=== PATIENT | male | born 1945 | race Caucasian/White ===

== ENCOUNTER 2021-02-08 11:55 | Emergency (ER) | payer OTHER ==
[~2021-02-08] VITALS: Ht 182.9 cm; Wt 115.0 kg
--- NOTE | 2021-02-08 12:27 | RAD ---
XR CHEST 1V History: Reason: SHORTNESS OF BREATH / Spl. Instructions: / History: Comparison: None. Findings: Mild ill-defined right upper and mid and lung opacities. No pleural effusion. No pneumothorax. Normal heart size. Calcified right upper lobe pulmonary nodule, likely prior granulomatous disease. Glenohu meral DJD, left greater than right. Impression: 1. Mild ill-defined opacities, may represent atelectasis or developing infiltrates. If persistent cl inical concern, recommend follow-up. Electronically signed by: Syd Johnson DO (02/08/2021 12:24 PM) [id number]
--- NOTE | 2021-02-08 12:27 | PHYS DOC ---
Past History Past Surgical History: No Surgical History General Adult EDM: Chief Complaint: SHORTNESS OF BREATH HPI: HPI: 75-year-old male presents with shortness of breath and syncopal episode. The patient has been feeling short of breath and generally ill for the last 4 days. His first symptom was shortness of breath. Last night he had body aches and cramps and dizziness. He got up to go to the restroom got dizzy and thinks he lost consciousness. He fell against something and hit the left periorbital area. [facility] and he is still having shortness of breath. Patient was a smoker for 10 years but has no official COPD diagnosis. [facility] but the results are pending. Review of Systems: Review of Systems: Constitutional: Denies fever or chills. Body aches, fatigue Eyes: Denies change in visual acuity HENT: Denies nasal congestion or sore throat Respiratory: shortness of breath Cardiovascular: Denies chest pain or edema GI: Denies abdominal pain, nausea, vomiting, bloody stools or diarrhea : Denies dysuria Musculoskeletal: Denies back pain or joint pain Integument: Denies rash Neurologic: Denies headache, focal weakness or sensory changes Endocrine: Denies polyuria or polydipsia Lymphatic: Denies swollen glands Psychiatric: Denies depression or anxiety Physical Exam: PE: Constitutional: Well developed, well nourished, no acute distress, non-toxic appearance. [] HENT: Normocephalic, bilateral external ears normal, oropharynx moist, no oral exudates, nose normal. [] Eyes: PERRLA, EOMI, conjunctiva normal, no discharge. Dried blood above left eye, ecchymosis below the left eye. [] Neck: Normal range of motion, no tenderness, supple, no stridor. [] Cardiovascular: Heart rate regular rhythm, no murmur [] Lungs & Thorax: Mild end expiratory wheeze right base [] Abdomen: Bowel sounds normal, soft, no tenderness, no masses, no pulsatile masses. [] Skin: Warm, dry, no erythema, no rash. [] Back: No tenderness, no CVA tenderness. [] Extremities: No tenderness, no cyanosis, no clubbing, ROM intact, no edema. [] Neurologic: Alert and oriented X 3, normal motor function, normal sensory function, no focal deficits noted. [] Psychologic: Affect normal, judgement normal, mood normal. [] Current Patient Data: Vital Signs: Vital Signs Date Time Temp Pulse Resp B/P (MAP) Pulse Ox O2 Delivery O2 Flow Rate FiO2 02/08/21 11:58 98.3 88 25 122/77 96 Room Air EKG: EKG: Sinus rhythm, rate 84, normal axis, no ST elevation or depression. [] Radiology/Procedures: Radiology/Procedures: [] Impressions: XR CHEST 1V History: Reason: SHORTNESS OF BREATH / Spl. Instructions: / History: Comparison: None. Findings: Mild ill-defined right upper and mid and lung opacities. No pleural effusion. No pneumothorax. Normal heart size. Calcified right upper lobe pulmonary nodule, likely prior granulomatous disease. Glenohumeral DJD, left greater than right. Impression: 1. Mild ill-defined opacities, may represent atelectasis or developing infiltrates. If persistent clinical concern, recommend follow-up. Electronically signed by: Syd Johnson DO (02/08/2021 12:24 PM) [id number] DICTATED AND SIGNED BY: SYD JOHNSON DO DATE: 02/08/21 1223 CC: PAUL MUÑOZ DO; PCP,NO ~MTH0 0 EXAM: CT head without contrast INDICATION: Fall, syncope COMPARISON: None TECHNIQUE: Axial CT imaging through the head without intravenous contrast. One or more of the following individualized dose reduction techniques were utilized for this examination: 1. Automated exposure control 2. Adjustment of the mA and/or kV according to patient size 3. Use of iterative reconstruction technique. FINDINGS: The ventricles and sulci are within normal limits. Santana-white matter differentiation is maintained. There is no intracranial hemorrhage, acute infarct, or mass lesion. Basal cisterns are clear. The skull. There is intact. There is mild left periorbital soft tissue swelling.. Paranasal sinuses and mastoid air cells are clear. Globes and orbits are intact.. IMPRESSION: 1. No acute intracranial abnormality. 2. Mild left periorbital soft tissue swelling. Electronically signed by: Torie Monroe MD (02/08/2021 12:45 PM) [id number] DICTATED AND SIGNED BY: TORIE MONROE MD DATE: 02/08/21 1243 CC: PAUL MUÑOZ DO; PCP,BELLA ~MTH0 0 Heart Score: C/O Chest Pain: N/A Risk Factors: Risk Factors: DM, Current or recent (<one month) smoker, HTN, HLP, family history of CAD, obesity. Risk Scores: Score 0 - 3: 2.5% MACE over next 6 weeks - Discharge Home Score 4 - 6: 20.3% MACE over next 6 weeks - Admit for Clinical Observation Score 7 - 10: 72.7% MACE over next 6 weeks - Early Invasive Strategies Course & Med Decision Making: Course & Med Decision Making Pertinent Labs and Imaging studies reviewed. (See chart for details) The patient's EKG is negative for acute findings. His labs are significant for a troponin of 0.250. His imaging is negative for acute findings. The patient is not having any chest pain at this time. He has been given 324 of aspirin. I spoke with Dr. Eng and he has accepted the patient but we do not have beds at this facility so he will accept him at [facility]. Patient will go by ambulance. [] Dragon Disclaimer: Dragon Disclaimer: This electronic medical record was generated, in whole or in part, using a voice recognition dictation system. Departure Departure: Impression: Primary Impression: Elevated troponin I level Additional Impression: COVID-19 Disposition: 02 SHORT TERM HOSPITAL Admitting Physician: Randa Eng Condition: STABLE Referrals: PCP,NO (PCP) PAUL MUÑOZ DO Feb 08, 2021 12:27
[2021-02-08 12:43] LABS: BASO % 1 % (0-3); EOS % 0 % (0-3); HEMATOCRIT 48.2 % (39.0-53.0); HEMOGLOBIN 16.7 g/dL (13.0-17.5); LYMPH # 0.8 x10^3/uL (1.0-4.8); LYMPH % 13 % (24-48); MEAN CORPUSCULAR HEMOGLOBIN 31 pg (25-35); MEAN CORPUSCULAR HGB CONC 35 g/dL (31-37); MEAN CORPUSCULAR VOLUME 90 fL (79-100); MONO # 0.5 x10^3/uL (0.0-1.1); MONO % 9 % (0-9); NEUT # 4.5 x10^3uL (1.8-7.7); NEUT % 77 % (31-73); PLATELET COUNT 159 x10^3/uL (140-400); RED BLOOD COUNT 5.37 x10^6/uL (4.30-5.70); RED CELL DISTRIBUTION WIDTH 13.4 % (11.5-14.5); WHITE BLOOD COUNT 5.8 x10^3/uL (4.0-11.0)
--- NOTE | 2021-02-08 12:47 | RAD ---
EXAM: CT head without contrast INDICATION: Fall, syncope COMPARISON: None TECHNIQUE: Axial CT imaging through the head without intravenous contrast. One or more of the following individualized dose reduction techniques were utilized for this examinat ion: 1. Automated exposure control 2. Adjustment of the mA and/or kV according to patient size 3. Use of iterative reconstruction technique. FINDINGS: The ventricles and sulci are within normal limits. Santana-white matter differentiation is maintained. There is no intracranial hemorrhage, acute infarct, or mass lesion. Basal cisterns are clear. The skull. There is intact. There is mild left periorbital soft tissue swelling.. Paranasal sinuses a nd mastoid air cells are clear. Globes and orbits are intact.. IMPRESSION: 1. No acute intracranial abnormality. 2. Mild left periorbital soft tissue swelling. Electronically signed by: Torie Monroe MD (02/08/2021 12:45 PM) [id number]
[2021-02-08 12:55] LABS: CALCIUM 8.5 mg/dL (8.5-10.1); CREATININE 2.3 mg/dL (0.7-1.3); POTASSIUM 3.4 mmol/L (3.5-5.1)
[2021-02-08 13:01] LABS: ALBUMIN 3.8 g/dL (3.4-5.0); ALBUMIN/GLOBULIN RATIO 1.4 (1.0-1.7); TOTAL BILIRUBIN 0.7 mg/dL (0.2-1.0); TOTAL PROTEIN 6.5 g/dL (6.4-8.2)
[2021-02-08] MEDS ORDERED: ASPIRIN CHEWABLE 81 MG TABLET. PO ONE (13:30)
[2021-02-08 14:02] LABS: BILIRUBIN,URINE SMALL (NEG); COLOR,URINE AMBER; GLUCOSE,URINE NEG (NEG)
[2021-02-08 14:03] LABS: NITRITE,URINE NEG (NEG)
[2021-02-08 14:05] LABS: AMORPHOUS SEDIMENT,UR PRESENT /HPF; BACTERIA,URINE FEW /HPF (0-FEW); GRANULAR CASTS,URINE FEW /HPF; HYALINE CASTS, URINE MOD /HPF; SQUAMOUS EPITHELIAL CELL,UR MOD /LPF
[2021-02-08 14:06] LABS: CLARITY,URINE HAZY
[2021-02-08 17:03] VITALS: BP 113/68
--- NOTE | 2021-02-08 23:49 | EKG ---
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
== END 2021-02-08 17:48 | disposition short-term general hospital (02) ==
LOC: ER 12:22
DX: S05.12XA Contusion of eyeball and orbital tissues, left eye, initial encounter (principal); U07.1 COVID-19; R77.8 Other specified abnormalities of plasma proteins; W18.09XA Striking against other object with subsequent fall, initial encounter; Y93.89 Activity, other specified; Y92.89 Other specified places as the place of occurrence of the external cause; Y99.8 Other external cause status
CPT/HCPCS: 36415; 70450; 71045; 80053; 81001; 84484; 85025; 87086; 87426; 93005; 99285

== ENCOUNTER 2021-02-14 22:33 | Inpatient (IN) | payer OTHER ==
[~2021-02-14] VITALS: Ht 182.9 cm; Wt 106.5 kg
--- NOTE | 2021-02-14 22:57 | PHYS DOC ---
Past History Past Medical History: No Pertinent History Past Surgical History: No Surgical History Alcohol Use: Occasionally General Adult EDM: Chief Complaint: Shortness of breath HPI: HPI: 75-year-old male presents the emergency department with shortness of breath and hypoxia from his Covid pneumonia. He was seen in the emergency room 02/08 with Covid and had a CT scan of his head done for syncope and fall that was negative. He reports no further trauma or fall since this time. And reports that his periorbital ecchymosis are old from his previous evaluation in the ED. He states that he was discharged on oxygen, but was unable to set it up at home. He had several welfare checks done to his residence, he was found to be hypoxic today in the 70s at room air. He was put on 5 L by EMS when he arrived and was in the mid 90s. He had no further complaints. the patient denies nausea, vomiting, fever, chills, chest pain, abdominal pain, urinary symptoms, recent trauma, or any other complaints. He is unvaccinated Review of Systems: Review of Systems: Review of systems otherwise negative except what was mentioned in the HPI Allergies: Allergies: Allergies Coded Allergies Type Severity Reaction Last Updated Verified No Known Drug Allergies 02/08/21 No Physical Exam: PE: Constitutional: No acute distress, non-toxic appearance. HENT: Bilateral periorbital ecchymosis, patient states is old, bilateral external ears normal, nose normal. Eyes: PERRLA, EOMI, conjunctiva normal, no discharge. Neck: Normal range of motion, supple, no stridor. Cardiovascular: Heart rate regular rhythm. 2+ radial pulses Lungs & Thorax: Mild respiratory distress, symmetrical expansion. Abdomen: Soft, no tenderness Skin: Warm, dry. Extremities: No tenderness, no cyanosis, ROM intact, no edema. Neurologic: Alert and oriented X 3, normal motor function, normal sensory function, no focal deficits noted. Non ataxic gait. GCS 15. Psychologic: Affect normal, judgment normal, mood normal. Current Patient Data: Labs: Laboratory Tests Test 02/14/21 23:25 White Blood Count 8.6 x10^3/uL (4.0-11.0) Red Blood Count 4.17 x10^6/uL (4.30-5.70) L Hemoglobin 12.8 g/dL (13.0-17.5) L Hematocrit 36.9 % (39.0-53.0) L Mean Corpuscular Volume 89 fL (79-100) Mean Corpuscular Hemoglobin 31 pg (25-35) Mean Corpuscular Hemoglobin Concent 35 g/dL (31-37) Red Cell Distribution Width 13.5 % (11.5-14.5) Platelet Count 214 x10^3/uL (140-400) Neutrophils (%) (Auto) 86 % (31-73) H Lymphocytes (%) (Auto) 6 % (24-48) L Monocytes (%) (Auto) 7 % (0-9) Eosinophils (%) (Auto) 0 % (0-3) Basophils (%) (Auto) 1 % (0-3) Neutrophils # (Auto) 7.4 x10^3uL (1.8-7.7) Lymphocytes # (Auto) 0.5 x10^3/uL (1.0-4.8) L Monocytes # (Auto) 0.6 x10^3/uL (0.0-1.1) Eosinophils # (Auto) 0.0 x10^3/uL (0.0-0.7) Basophils # (Auto) 0.1 x10^3/uL (0.0-0.2) Sodium Level 142 mmol/L (136-145) Potassium Level 3.6 mmol/L (3.5-5.1) Chloride Level 108 mmol/L (98-107) H Carbon Dioxide Level 24 mmol/L (21-32) Anion Gap 10 (6-14) Blood Urea Nitrogen 27 mg/dL (8-26) H Creatinine 1.5 mg/dL (0.7-1.3) H Estimated GFR (Cockcroft-Gault) 45.9 Glucose Level 148 mg/dL (70-99) H Calcium Level 8.1 mg/dL (8.5-10.1) L Vital Signs: Vital Signs Date Time Temp Pulse Resp B/P (MAP) Pulse Ox O2 Delivery O2 Flow Rate FiO2 02/14/21 22:33 98.9 66 24 122/69 94 Nasal Cannula 5.0 EKG: EKG: Normal sinus rhythm rate of 60, no STEMI Radiology/Procedures: Radiology/Procedures: Exam: Chest one view INDICATION: Covid TECHNIQUE: Frontal view of the chest Comparisons: 02/08/2021 FINDINGS: The cardiomediastinal silhouette and pulmonary vessels are within normal limits. Patchy bilateral airspace disease. No pleural effusion. IMPRESSION: Bilateral airspace disease favored to be infectious or inflammatory in etiology. This has significantly worsened compared to the study on 02/08/2021 Electronically signed by: Giovanni Khan MD (02/14/2021 11:24 PM) Heart Score: C/O Chest Pain: No Course & Med Decision Making: Course & Med Decision Making Patient with severe COVID-19 pneumonia. Originally satting in the 70s in the field, he was brought up to mid 90s on 5 L of oxygen which he is not on at baseline. patient will be admitted to the hospitalist Dr. De La Paz My Orders - AARON LOERA DO Procedure Category Date Status Time Cbc W [employer] LAB 02/14/21 Complete 22:50 Basic Metabolic Panel LAB 02/14/21 Complete 22:50 Chest Ap Only RAD 02/14/21 Resulted 22:50 12 Lead Ekg EKG 02/14/21 Logged 22:56 [place] Order ADT 02/15/21 Transmitted 00:17 Code Status CODE 02/15/21 Transmitted 00:17 Vital Signs, Per GRETEL 02/15/21 Transmitted Protocol 00:17 Oxygen GRETEL 02/15/21 Transmitted 00:17 Regular DIET 02/15/21 Transmitted Breakfast Up In Chair With GRETEL 02/15/21 Transmitted Assistance 00:17 Cbc W [employer] LAB 02/16/21 Verified 06:00 Basic Metabolic Panel LAB 02/16/21 Verified 06:00 Zofran 4mg Q4 Hours PHA 02/15/21 Transmitted PRN 00:30 Iv Normal Saline PHA 02/15/21 Transmitted 1,000ml (Iv Sodium 00:30 Enoxaparin 40mg PHA 02/15/21 Transmitted Syringe (Lovenox 40mg 06:00 Departure Departure: Impression: Primary Impression: COVID-19 Disposition: 09 ADMITTED INPATIENT Admitting Physician: Hitesh De La Paz Condition: IMPROVED Referrals: PCP,BELLA (PCP) AARON LOERA DO Feb 14, 2021 22:57
--- NOTE | 2021-02-14 23:26 | RAD ---
Exam: Chest one view INDICATION: Covid TECHNIQUE: Frontal view of the chest Comparisons: 02/08/2021 FINDINGS: The cardiomediastinal silhouette and pulmonary vessels are within normal limits. Patchy bilateral airspace disease. No pleural effusion. IMPRESSION: Bilateral airspace disease favored to be infectious or inflammatory in etiology. This has significant ly worsened compared to the study on 02/08/2021 Electronically signed by: Giovanni Khan MD (02/14/2021 11:24 PM) [facility]
[2021-02-14 23:46] LABS: BASO # 0.1 x10^3/uL (0.0-0.2); BASO % 1 % (0-3); EOS % 0 % (0-3); HEMATOCRIT 36.9 % (39.0-53.0); HEMOGLOBIN 12.8 g/dL (13.0-17.5); LYMPH # 0.5 x10^3/uL (1.0-4.8); LYMPH % 6 % (24-48); MEAN CORPUSCULAR HEMOGLOBIN 31 pg (25-35); MEAN CORPUSCULAR HGB CONC 35 g/dL (31-37); MEAN CORPUSCULAR VOLUME 89 fL (79-100); MONO # 0.6 x10^3/uL (0.0-1.1); MONO % 7 % (0-9); NEUT # 7.4 x10^3uL (1.8-7.7); NEUT % 86 % (31-73); PLATELET COUNT 214 x10^3/uL (140-400); RED BLOOD COUNT 4.17 x10^6/uL (4.30-5.70); RED CELL DISTRIBUTION WIDTH 13.5 % (11.5-14.5); WHITE BLOOD COUNT 8.6 x10^3/uL (4.0-11.0)
[2021-02-14 23:59] LABS: CALCIUM 8.1 mg/dL (8.5-10.1); CREATININE 1.5 mg/dL (0.7-1.3); GFR 45.9; POTASSIUM 3.6 mmol/L (3.5-5.1)
[2021-02-15] MEDS ORDERED: ONDANSETRON PF 4 MG/2 ML VIAL. IVP PRN (00:30)
--- NOTE | 2021-02-15 00:42 | EKG ---
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
[2021-02-15 01:15] VITALS: BP 116/69
[2021-02-15] MEDS: IV NORMAL SALINE 1,000ML 1,000 ML IV SCH ×2 (01:42→13:50)
[2021-02-15] MEDS ORDERED: TAMS0.4C97 PO (02:44)
[2021-02-15] MEDS ORDERED: RIVA20TA2 PO (02:44)
[2021-02-15] MEDS ORDERED: LISI-517 PO (02:44)
[2021-02-15] MEDS ORDERED: CIME800T PO (02:44)
[2021-02-15] MEDS ORDERED: MELO7.5T29 PO (02:44)
[2021-02-15] MEDS ORDERED: LOSA100T14 PO (02:44)
[2021-02-15] MEDS ORDERED: DILT420T7 PO (02:44)
[2021-02-15] MEDS ORDERED: VARD10TA PO (04:28)
[2021-02-15] MEDS ORDERED: ENOXAPARIN 40 MG/0.4 ML SYRINGE. SQ ONE (06:00)
[2021-02-15] MEDS: HYDROcodone/CHLORPHEN POLIS 5 ML SUS.ER.12H PO PRN ×2 (06:15→17:14)
[2021-02-15 06:25] VITALS: BP 137/70
[2021-02-15] MEDS: BUDESONIDE 0.5 MG/2 ML NEBU NEB SCH ×2 (08:16→20:48)
[2021-02-15] MEDS: methylPREDNISolone SOD SUCC PF 40 MG/ML VIAL. IV SCH ×2 (08:17→20:48)
--- NOTE | 2021-02-15 08:49 | HP ---
ADMIT DATE: 02/15/2021 ATTENDING PHYSICIAN: Dr. De La Paz. CHIEF COMPLAINT: Shortness of breath. HISTORY OF PRESENT ILLNESS: The patient is a 75-year-old gentleman who has had COVID pneumonia for the last 2 weeks. Supposedly, he was hospitalized at [facility], was sent home. [facility]. He has been in and out of their ER in the last several days complaining of increasing shortness of breath. In our ED, followup imaging study showed diffuse ground glass appearing infiltrates in both lower lobes. He is still hypoxemic, requiring high dose of oxygen, initially 5 liters and by the time I saw him, it had been increased at least 12 liters by high flow Venturi mask. The patient wanted to go home. He has got a lot of psychosocial issues including a son who is mentally disabled and pat that is needing his care. His a year ago. He is admitted then with COVID pneumonia, still symptomatic and hypoxemic respiratory failure. PAST MEDICAL HISTORY: Significant for essential hypertension. He also has paroxysmal atrial fibrillation, degenerative arthritis and gastroesophageal reflux disease. SOCIAL HISTORY: He drinks socially. He was a smoker up to 3 weeks ago, 90-[id number]-[id number] history. FAMILY HISTORY: Noncontributory. REVIEW OF SYSTEMS: Significant for the dyspnea with minimal exertion. He had a recent syncopal episode resulting in a fall. He has bilateral orbital ecchymoses, aggravated by his chronic anticoagulation. No nausea. All other systems reviewed and turned to be negative. PHYSICAL EXAMINATION: GENERAL: When I saw him, this is an elderly gentleman who is very agitated and has very little insight as to what is going on. VITAL SIGNS: Initial vital signs showed a blood pressure of 137/70 mmHg, pulse is 60 and regular. He is afebrile. Oxygen saturation 89% by 12 liters by Venturi mask. HEENT: Head is with trauma. He has bilateral orbital ecchymoses. There is some soft tissue swelling. Ears are normal. Throat clear. NECK: Supple. No stridor. LUNGS: Diffuse wheezing and rhonchi at the bases. CARDIOVASCULAR: Showed distant heart tones. No gallops. ABDOMEN: Soft. EXTREMITIES: Showed no cyanosis or edema. NEUROLOGIC: Focally intact. Speech is fluent. SKIN: Warm and dry. PERTINENT LABORATORY STUDIES: Chest x-ray still showed diffuse infiltrates at the bases. The CBC showed a hemoglobin of 12.8 g/dL, white count 8600. Electrolytes within range. Creatinine is 1.5 mg %. Nonfasting blood sugar 148. ASSESSMENT: 1. A 75-year-old gentleman with acute on chronic hypoxemic respiratory failure. 2. COVID-19 pneumonia for the last 2 weeks. 3. Chronic obstructive pulmonary disease, advanced. 4. Hypertension. 5. Chronic anticoagulation. 6. Recent trauma and periorbital ecchymoses. PLAN: 1. Admit to the inpatient unit. 2. Supplemental oxygen to maintain adequate saturations. 3. Solu-Medrol empirically. 4. Breathing treatments as needed. NAJMA DR: Lelo TID: [id number]
[2021-02-15 11:00] VITALS: BP 137/105
[2021-02-15] MEDS ORDERED: ALBUTEROL SULFATE 8GM INHALER. INH PRN (14:30)
[2021-02-15 15:00] VITALS: BP 124/66
[2021-02-15] MEDS ORDERED: ACETAMINOPHEN 500 MG TABLET PO ONE (16:15)
[2021-02-15 18:53] VITALS: BP 124/67
[2021-02-15] MEDS: TEMAZEPAM 15 MG CAPSULE PO PRN (20:48)
[2021-02-15] MEDS: BENZOCAINE/MENTHOL LOZNGE 18'S BOX. PO PRN (20:48)
[2021-02-15 22:10] VITALS: BP 108/63
[2021-02-16 06:18] VITALS: BP 120/62
[2021-02-16 06:50] LABS: BASO % 0 % (0-3); EOS % 0 % (0-3); HEMATOCRIT 36.8 % (39.0-53.0); HEMOGLOBIN 12.6 g/dL (13.0-17.5); LYMPH # 0.4 x10^3/uL (1.0-4.8); LYMPH % 5 % (24-48); MEAN CORPUSCULAR HEMOGLOBIN 31 pg (25-35); MEAN CORPUSCULAR HGB CONC 34 g/dL (31-37); MEAN CORPUSCULAR VOLUME 89 fL (79-100); MONO # 0.4 x10^3/uL (0.0-1.1); MONO % 5 % (0-9); NEUT # 7.2 x10^3uL (1.8-7.7); NEUT % 89 % (31-73); PLATELET COUNT 230 x10^3/uL (140-400); RED BLOOD COUNT 4.11 x10^6/uL (4.30-5.70); RED CELL DISTRIBUTION WIDTH 13.3 % (11.5-14.5); WHITE BLOOD COUNT 8.1 x10^3/uL (4.0-11.0)
[2021-02-16 06:51] LABS: CALCIUM 8.2 mg/dL (8.5-10.1); CREATININE 1.2 mg/dL (0.7-1.3); GFR 59.3; POTASSIUM 3.8 mmol/L (3.5-5.1)
[2021-02-16] MEDS: BUDESONIDE 0.5 MG/2 ML NEBU NEB SCH ×3 (08:00→20:57)
[2021-02-16] MEDS: RIVAROXABAN 10 MG TABLET. PO SCH (08:50)
[2021-02-16] MEDS: FAMOTIDINE 20 MG TABLET PO SCH (08:50)
[2021-02-16] MEDS: TAMSULOSIN 0.4 MG CAP.ER.24H. PO SCH (08:51)
[2021-02-16] MEDS: LISINOPRIL 5 MG TABLET. PO SCH (08:51)
[2021-02-16] MEDS: LOSARTAN 50 MG TABLET. PO SCH (08:51)
[2021-02-16] MEDS: methylPREDNISolone SOD SUCC PF 40 MG/ML VIAL. IV SCH ×2 (08:52→20:24)
[2021-02-16 15:28] VITALS: BP 128/70
[2021-02-16] MEDS ORDERED: REMDESIVIR LOAD in IV NORMAL SALINE 250ML TV IV ONE (15:45)
[2021-02-16 19:00] VITALS: BP 140/80
--- NOTE | 2021-02-16 19:09 | PN ---
DATE: 02/16/2021 ATTENDING PHYSICIAN: Dr. De La Paz. SUBJECTIVE: He is less dyspneic. He had been on 12 liters of supplemental oxygen. We were able to get him down to 8 liters. He is feeling better. He is getting his taste back. He is still having exertional dyspnea. OBJECTIVE FINDINGS: VITAL SIGNS: Blood pressure this morning is 120/62 mmHg, pulse is 71 and regular. He is afebrile. Oxygen saturation 94%, down to 8 liters. HEENT: He has bilateral orbital ecchymoses from trauma. Oropharynx clear. NECK: Supple. LUNGS: Good breath sounds with minimal rhonchi at the bases. CARDIOVASCULAR: Regular heart tones. No gallops. ABDOMEN: Soft. EXTREMITIES: Without edema. NEUROLOGIC: Focally intact. SKIN: Warm and dry. ASSESSMENT: 1. A 75-year-old gentleman with acute on chronic hypoxemic respiratory failure. 2. COVID-19 pneumonia for the last 2 weeks. 3. Chronic obstructive pulmonary disease. 4. Hypertension. 5. Chronic anticoagulation. 6. Recent trauma and periorbital ecchymoses. PLAN: 1. We will decrease his supplemental oxygen. 2. Continue IV corticosteroid therapy. 3. Home medications continued. 4. Tentative discharge planning soon. If we can get him down to 2-3 liters by supplemental nasal cannula we can arrange for home oxygen. He already has a [facility]. SATURNINO DR: NAOMY/arabella TID: [id number]
[2021-02-16] MEDS: TEMAZEPAM 15 MG CAPSULE PO PRN (22:01)
[2021-02-17] MEDS ORDERED: MAGNESIUM CITRATE 296 ML SOLUTION. PO ONE (02:30)
[2021-02-17 05:18] VITALS: BP 154/68
[2021-02-17 08:03] LABS: ALBUMIN 2.5 g/dL (3.4-5.0); ALBUMIN/GLOBULIN RATIO 0.8 (1.0-1.7); CALCIUM 8.2 mg/dL (8.5-10.1); CREATININE 0.9 mg/dL (0.7-1.3); GFR 82.7; TOTAL BILIRUBIN 0.5 mg/dL (0.2-1.0); TOTAL PROTEIN 5.5 g/dL (6.4-8.2)
[2021-02-17] MEDS: TAMSULOSIN 0.4 MG CAP.ER.24H. PO SCH (10:08)
[2021-02-17] MEDS: RIVAROXABAN 10 MG TABLET. PO SCH (10:08)
[2021-02-17] MEDS: LISINOPRIL 5 MG TABLET. PO SCH (10:08)
[2021-02-17] MEDS: LOSARTAN 50 MG TABLET. PO SCH (10:08)
[2021-02-17] MEDS: BUDESONIDE 0.5 MG/2 ML NEBU NEB SCH ×2 (10:09→20:39)
[2021-02-17] MEDS: FAMOTIDINE 20 MG TABLET PO SCH (10:09)
[2021-02-17] MEDS: ACETAMINOPHEN 500 MG TABLET PO PRN ×2 (10:09→20:39)
[2021-02-17] MEDS: methylPREDNISolone SOD SUCC PF 40 MG/ML VIAL. IV SCH ×2 (10:25→20:40)
[2021-02-17 15:00] VITALS: BP 133/66
[2021-02-17] MEDS ORDERED: REMDESIVIR 100mg in NORMAL SALINE 250ML X 4 DAYS IV SCH (15:45)
[2021-02-17] MEDS: HYDROcodone/CHLORPHEN POLIS 5 ML SUS.ER.12H PO PRN (17:09)
[2021-02-17] MEDS: BENZOCAINE/MENTHOL LOZNGE 18'S BOX. PO PRN (17:11)
[2021-02-17 19:35] VITALS: BP 133/66
[2021-02-17] MEDS: TEMAZEPAM 15 MG CAPSULE PO PRN (20:39)
--- NOTE | 2021-02-17 21:19 | PN ---
DATE: 02/17/2021 ATTENDING PHYSICIAN: Dr. De La Paz. SUBJECTIVE: Feeling better. He is less dyspneic. OBJECTIVE FINDINGS: VITAL SIGNS: Blood pressure this morning is 154/60, pulse 73 and regular. He is afebrile. Oxygen saturation is now 97% on only 2 liters by nasal cannula. HEENT: Head is without trauma. Pupils are reactive. Sclerae nonicteric. Oropharynx clear. NECK: Supple, no bruits. LUNGS: Good breath sounds. Minimal wheezing. CARDIOVASCULAR: Showed regular heart tones. No gallops. ABDOMEN: Soft. EXTREMITIES: Without edema. NEUROLOGIC: Focally intact. Speech is fluent. Pertinent x-ray studies as noted. ASSESSMENT: 1. A 75-year-old gentleman with acute on chronic respiratory failure. 2. COVID-19 pneumonia for the last 2 weeks, resolving. 3. Chronic obstructive pulmonary disease, underlying. 4. Hypertension. 5. Chronic anticoagulation. 6. Recent periorbital ecchymosis. PLAN: 1. Continue supplemental oxygen. 2. Taper corticosteroids. 3. We will wean down oxygen demands. 4. Tentative discharge plans for tomorrow after we were able to obtain supplemental oxygen at home. He will need a low dose, which is 2 liters by nasal cannula. MILIND DR: Lelo TID: [id number]
[2021-02-17 22:00] VITALS: BP 161/86
[2021-02-18 01:05] VITALS: BP 160/83
[2021-02-18] MEDS: HYDROcodone/CHLORPHEN POLIS 5 ML SUS.ER.12H PO PRN (05:09)
[2021-02-18 05:35] VITALS: BP 136/79
[2021-02-18] MEDS: BUDESONIDE 0.5 MG/2 ML NEBU NEB SCH (08:40)
[2021-02-18] MEDS: methylPREDNISolone SOD SUCC PF 40 MG/ML VIAL. IV SCH (08:51)
[2021-02-18] MEDS: LISINOPRIL 5 MG TABLET. PO SCH (08:53)
[2021-02-18] MEDS: ACETAMINOPHEN 500 MG TABLET PO PRN (08:54)
[2021-02-18] MEDS: FAMOTIDINE 20 MG TABLET PO SCH (08:54)
[2021-02-18] MEDS: LOSARTAN 50 MG TABLET. PO SCH (08:54)
[2021-02-18] MEDS: RIVAROXABAN 10 MG TABLET. PO SCH (08:54)
[2021-02-18] MEDS: TAMSULOSIN 0.4 MG CAP.ER.24H. PO SCH (08:55)
[2021-02-18 11:00] VITALS: BP 134/76
[2021-02-18 11:26] VITALS: BP 132/76
[2021-02-18] MEDS ORDERED: REMDESIVIR 100mg in NORMAL SALINE 250ML X 4 DAYS IV SCH (12:00)
[2021-02-18 15:00] VITALS: BP 138/74
--- NOTE | 2021-02-18 20:54 | DS ---
DATE OF DISCHARGE: 02/18/2021 ATTENDING PHYSICIAN: Dr. De La Paz. FINAL DISCHARGE DIAGNOSES: 1. Acute on chronic respiratory failure. 2. COVID-19 pneumonia, improving. 3. Chronic obstructive pulmonary disease. 4. Recent fall with bilateral orbital ecchymoses. 5. Essential hypertension. 6. Chronic anticoagulation. HISTORY AND PHYSICAL: The patient is a 75-year-old gentleman who has had a 2-week history of COVID pneumonia now. He was actually hospitalized at [facility], discharged home. He is still hypoxemic, requiring supplemental oxygen. [facility] He was [facility] here for supplemental oxygen. PHYSICAL EXAMINATION: Please see the dictated note. PERTINENT LABORATORY AND X-RAY STUDIES: Admission hemoglobin was 12.8 g/dL, white count ____. Electrolytes within normal range. Creatinine is 1.5, repeated was down to 0.9 mg/dL. Imaging studies done in the ED showed bilateral patchy airspace disease. No effusions identified. COURSE IN THE HOSPITAL: The patient was admitted to the ICU. Supplemental oxygen was administered. He eventually gone up to 12 liters per minute by high flow nasal cannula. Eventually, he improved and it was down to 2 liters by nasal cannula. He did well. He did respond to Solu-Medrol and breathing treatments. He did receive one dose of Remdesivir. By the fifth hospital day, his vital signs are stable. Oxygen saturation was adequate at 2 liters to maintain 90% saturation. I felt it was reasonable to go home. He wanted to go home. He is discharged home and then with prednisone 40 mg p.o. daily, Tussionex 5 mL q. 12 hours p.r.n. cough and continuation of her home meds including the following. He should continue his scheduled cimetidine, diltiazem, lisinopril, losartan, Xarelto, Flomax, and p.r.n. vardenafil. His prognosis is fair. He was discharged then from our hospital in stable condition with explicit drug and followup care. Supplemental oxygen 2 liters is [facility] the [facility]. Total discharge time spent 39 minutes. RICHARD/DULCE DR: NAOMY/arabella TID: [id number]
== END 2021-02-18 16:45 | disposition home or self-care (01) | DRG 177 ==
LOC: ER 22:33 → ICU 02-15 00:17
PROVIDERS: ADMIT Hospitalist; ATTEND Hospitalist
PROC: 5A0935A Assistance with Respiratory Ventilation, Less than 24 Consecutive Hours, High Flow/Velocity Cannula (ICD-10-PCS; 2021-02-15)
PROC: XW033E5 Introduction of Remdesivir Anti-infective into Peripheral Vein, Percutaneous Approach, New Technology Group 5 (ICD-10-PCS; principal; 2021-02-16)
DX: U07.1 COVID-19 (principal); J96.21 Acute and chronic respiratory failure with hypoxia; J12.82 Pneumonia due to coronavirus disease 2019; J44.0 Chronic obstructive pulmonary disease with (acute) lower respiratory infection; K21.9 Gastro-esophageal reflux disease without esophagitis; M19.90 Unspecified osteoarthritis, unspecified site; I10 Essential (primary) hypertension; I48.0 Paroxysmal atrial fibrillation; Z79.899 Other long term (current) drug therapy; Z87.891 Personal history of nicotine dependence; Z79.01 Long term (current) use of anticoagulants
CPT/HCPCS: 36415; 71045; 80048; 80053; 85025; 93005; 94640; J2920; J7050; 99285-25; J7030